=== PATIENT | male | born 1950 | race Caucasian/White ===

== ENCOUNTER 2016-11-30 18:46 | Emergency (ER) | payer MEDICARE, OTHER ==
--- NOTE | 2016-11-30 19:25 | Emergency Department Record ---
History of Present Illness - General Stated Complaint: LIGHTHEADED Time Seen by Provider: 11/30/16 19:20 Source: Patient Mode of Arrival: Ambulatory Limitations: No limitations - History of Present Illness Initial Comments: 66 yo male presents to ED with a CC of dizziness and "flu-like symptoms". Patient reports starting an injectable DM II medication 3 weeks ago, and reports similar symptoms after starting the medication each week, however today' s symptoms are longer in duration (48 hours). Patient denies fevers, chills, cough, or chest pain symptoms. Patient does report mild constipation "from the medication", last BM was yesterday. Complaint: Dizziness Onset/Timin -: Days(s) Description: Lightheadedness History of Same: Yes History of Trauma: No Severity: Moderate Improves With: Nothing Associated Symptoms: Other (body aches) - Urban Coma Scale Eye Response: (4) Open spontaneously Motor Response: (6) Obeys commands Verbal Response: (5) Oriented Urban Total: 15 - Related Data Home Medications Medication Instructions Recorded Confirmed Last Taken Docusate Sodium [Colace] 100 mg PO DAILY 11/30/16 11/30/16 Unknown Exenatide Microspheres [Bydureon 2 mg SQ WEEKLY 11/30/16 11/30/16 Unknown Pen] Glipizide [Glipizide ER] 5 mg PO DAILY 11/30/16 11/30/16 Unknown Metformin HCl [Metformin HCl ER] 2,000 mg PO DAILY 11/30/16 11/30/16 Unknown Sildenafil Citrate [Viagra] 100 mg PO ASDIR PRN 11/30/16 11/30/16 Unknown Allergies Allergy/AdvReac Type Severity Reaction Status Date / Time No Known Drug Allergies Allergy Verified 11/30/16 19:24 Review of Systems Constitutional: Denies: Chills, Fever, Malaise, Night sweats Eyes: Denies: Eye discharge, Eye pain ENT: Denies: Congestion, Ear pain, Epistaxis Respiratory: Denies: Cough, Dyspnea Cardiovascular: Denies: Chest pain, Dyspnea on exertion Endocrine: Denies: Fatigue, Heat or cold intolerance Gastrointestinal: Denies: Nausea, Vomiting Genitourinary: Denies: Incontinence, Retention Musculoskeletal: Reports: Myalgia. Denies: Arthralgia, Back pain, Gout, Joint swelling Skin: Denies: Bruising, Change in color Neurological: Denies: Abnormal gait, Confusion, Headache, Seizure Psychiatric: Denies: Anxiety Hematological/Lymphatic: Denies: Anemia, Blood Clots Physical Exam - General General Appearance: Alert, Oriented x3, Cooperative, No acute distress, Other ( patient is working on a [place] on examination, well appearing) Limitations: No limitations - Head Head exam: Atraumatic, Normocephalic, Normal inspection Head exam detail: negative: Abrasion, Contusion, Paulino's sign, General tenderness, Hematoma, Laceration - Eye Eye exam: Normal appearance. negative: Conjunctival injection, Periorbital swelling, Periorbital tenderness, Scleral icterus - ENT Ear exam: negative: Auricular hematoma, Auricular trauma Nasal Exam: negative: Active bleeding, Discharge, Dried blood, Foreign body Mouth exam: negative: Drooling, Laceration, Muffled voice, Tongue elevation - Neck Neck exam: Normal inspection. negative: Meningismus, Tenderness - Respiratory Respiratory exam: Normal lung sounds bilaterally. negative: Rhonchi, Stridor, Wheezes - Cardiovascular Cardiovascular Exam: Regular rate, Normal rhythm, Normal heart sounds - GI/Abdominal GI/Abdominal exam: Soft. negative: Rebound, Rigid, Tenderness - Rectal Rectal exam: Deferred - exam: Deferred - Extremities Extremities exam: Normal inspection. negative: Calf tenderness, Pedal edema, Tenderness - Back Back exam: Denies: CVA tenderness (R), CVA tenderness (L) - Neurological Neurological exam: Alert, Normal gait, Oriented X3 - Psychiatric Psychiatric exam: Normal affect, Normal mood - Skin Skin exam: Normal color. negative: Abrasion Type of lesion: negative: abrasion Course Vital Signs 11/30/16 19:09 Temperature 98.1 F Pulse Rate [ 79 Pulse Ox Probe] Respiratory 16 Rate Blood Pressure 151/104 [Left Arm] Pulse Ox 95 - Reevaluation(s) Reevaluation #1: 11/30/16 19:39 EKG: NSR 77 Normal axis Normal intervals Q wave III, no acute ST-T wave changes Reevaluation #2: 11/30/16 20:03 Labs reviewed and are grossly unremarkable for an acute process. Reevaluation #3: 11/30/16 20:21 Patient was updated on all results, reports that he is feeling much better and appears stable for discharge at this time. Patient was instructed to follow-up with Dr. Connor for a replacement DM treatment and to discontinue his current weekly injectable medication. Medical Decision Making - Lab Data Result diagrams: 11/30/16 19:30 11/30/16 19:30 Disposition Disposition: Discharge Clinical Impression: Adverse effect of drug Disposition: Home, Self-Care Condition: (2) Stable Instructions: Adverse Drug Reaction (ED) Additional Instructions: Return to ED if your symptoms worsen or if you have any concerns. Discontinue any further dosages of your injectable diabetic medication. Follow-up with Dr. Connor in 3-5 days as directed. Time of Disposition: 20:23
[2016-11-30] MEDS ORDERED: 0.9 % SODIUM CHLORIDE 1000ML 1,000 ML IV SCH (19:30)
[2016-11-30 19:47] LABS: BASO % 0.5 % (0-6); EOS % 2.2 % (0-6); HEMOGLOBIN 15.1 gm/dl (14.0-18.0); LYMPH % 25.1 % (16-45); MEAN CELL VOLUME 88.8 fl (81-97); MEAN CORPUSCULAR HEMOGLOBIN 29.8 pg (27-33); MEAN CORPUSCULAR HGB CONC 33.6 g/dl (32-36); MEAN PLATELET VOLUME 10.2 fl (7.4-10.4); MONO % 9.2 % (0-9); PLATELET COUNT 265 K/uL (130-400); RED BLOOD COUNT 5.07 M/uL (4.40-5.70); RED CELL DISTRIBUTION WIDTH 12.7 % (11.5-14.5); WHITE BLOOD COUNT W/O DIFF 9.6 K/uL (4.2-12.2)
[2016-11-30 19:57] LABS: BLOOD UREA NITROGEN 22 mg/dL (9-20); GLUCOSE,RANDOM 137 mg/dL (70-110); LACTIC ACID 1.5 mmol/L (0.7-2.1)
[2016-11-30 19:58] LABS: ALB/GLOB RATIO 1.5 (1.1-1.8); ALBUMIN 4.4 gm/dL (3.5-5.0); AST/SGOT 22 U/L (17-59); EST GLOMERULAR FILTRATION RATE > 60 ml/min; TOTAL PROTEIN 7.3 gm/dL (6.3-8.2)
[2016-11-30 19:59] LABS: ALKALINE PHOSPHATASE 60 U/L (38-126); ALT/SGPT 38 U/L (21-72); CREATINE PHOSPHOKINASE 33 U/L (55-170)
[2016-11-30 20:01] LABS: INFLUENZA A NEGATIVE (NEGATIVE); INFLUENZA B NEGATIVE (NEGATIVE)
== END 2016-11-30 20:45 | disposition home or self-care (01) ==
LOC: ER 18:46
DX: R42 Dizziness and giddiness (principal); T38.3X5A Adverse effect of insulin and oral hypoglycemic [antidiabetic] drugs, initial encounter; E11.9 Type 2 diabetes mellitus without complications; Z79.4 Long term (current) use of insulin; Z79.84 Long term (current) use of oral hypoglycemic drugs
CPT/HCPCS: 80053; 82550; 83605; 85025; 87400; 93005; 93010; 96360; 99284; J7030

== ENCOUNTER 2019-04-07 07:35 | Emergency (ER) | payer MEDICARE, OTHER ==
[2019-04-07] MEDS ORDERED: ASPIRIN 81 MG CHEWABLE TABLET PO ONE (07:42)
--- NOTE | 2019-04-07 07:48 | Emergency Department Record ---
History of Present Illness - General Chief Complaint: Chest Pain Stated Complaint: CHEST DISCOMFORT/REACTION TO NEW MED Time Seen by Provider: 04/07/19 07:38 Source: Patient Mode of Arrival: Ambulatory Limitations: No limitations - History of Present Illness Initial Comments: 68 yo male presents to with a sharp pain with cough and moving of the right upp er chest to the right shoulder. He woke up around 5am without any symptoms. He coughed around 6am and had a sudden sharp pain. The pain is reproduced with deep breathing, coughing, and moving. No fever. No shortness of breath. No recent cough or UTI. He did use a tractor for several hours last night that did not have power steering and he used that shoulder significantly. No CAD history. No DVT or PE history. MD Complaint: Chest pain -: Hour(s) (2) Onset: Other (Occurred with a cough) Pain Location: Right chest Pain Radiation: RUE (shoulder area) Quality: Sharp Consistency: Intermittent Improves With: Nothing Worsens With: Inspiration, Movement, Palpation Context: Recent illness (foot infection) Anginal Symptoms: Other (No shortness of breath) Treatments Prior to Arrival: None - Related Data Home Medications Medication Instructions Recorded Confirmed Last Taken Amlodipine Besylate/Benazepril 1 each PO DAILY 04/07/19 04/07/19 04/06/19 [Amlodipine-Benazepril 5-20 mg] Insulin Glargine,Hum.rec.anlog 38 unit SQ DAILY 04/07/19 04/07/19 04/07/19 [Basaglar Kwikpen U-100] Metoprolol Succinate [Toprol Xl] 50 mg PO DAILY 04/07/19 04/07/19 04/06/19 Pantoprazole Sodium [Protonix] 40 mg PO DAILY 04/07/19 04/07/19 04/06/19 Allergies Allergy/AdvReac Type Severity Reaction Status Date / Time No Known Drug Allergies Allergy Verified 11/30/16 19:24 Review of Systems Constitutional: Denies: Chills, Fever, Malaise, Weakness Eyes: Denies: Eye discharge ENT: Denies: Congestion, Epistaxis, Throat pain Respiratory: Reports: Cough. Denies: Dyspnea, Hemoptysis, Stridor, Wheezes Cardiovascular: Reports: As per HPI, Chest pain. Denies: Edema, Palpitations, Paroxysmal nocturnal dyspnea, Syncope Endocrine: Denies: Fatigue, Polydipsia, Polyuria Gastrointestinal: Denies: Abdominal pain, Diarrhea, Nausea, Vomiting Genitourinary: Denies: Dysuria, Frequency, Hematuria Musculoskeletal: Reports: As per HPI, Arthralgia, Myalgia. Denies: Back pain, Gout, Joint swelling Skin: Denies: Bruising, Change in color, Rash Neurological: Denies: Headache Psychiatric: Denies: Anxiety Hematological/Lymphatic: Denies: Blood Clots, Easy bleeding, Easy bruising Past Medical History - SOCIAL HISTORY Smoking Status: Never smoker Drug Use: None - RESPIRATORY Hx Respiratory Disorders: No - CARDIOVASCULAR Hx Cardio Disorders: No - NEURO Hx Neuro Disorders: No - GI Hx GI Disorders: No - Hx Genitourinary Disorders: Yes Hx Bladder Problem: Yes (cancer) - ENDOCRINE Hx Endocrine Disorders: Yes Hx Diabetes: Yes - MUSCULOSKELETAL Hx Musculoskeletal Disorders: No - PSYCH Hx Psych Problems: No - HEMATOLOGY/ONCOLOGY Hx Cancer: Yes Physical Exam - General General Appearance: Alert, Oriented x3, Cooperative, No acute distress Limitations: No limitations - Head Head exam: Atraumatic, Normal inspection - Eye Eye exam: Normal appearance, PERRL. negative: Conjunctival injection, Scleral icterus - ENT ENT exam: Normal exam, Mucous membranes moist Ear exam: Normal external inspection Nasal Exam: Normal inspection Mouth exam: Normal external inspection - Neck Neck exam: Normal inspection, Full ROM - Respiratory Respiratory exam: Normal lung sounds bilaterally, Chest wall tenderness (tender to palpation in the right upper chest). negative: Accessory muscle use, Decreased breath sounds, Prolonged expiratory, Rales, Rhonchi, Stridor, Wheezes - Cardiovascular Cardiovascular Exam: Regular rate, Normal rhythm, Normal heart sounds. negative: Diastolic murmur, Systolic murmur Peripheral Pulses: 2+: Radial (R), Radial (L) - GI/Abdominal GI/Abdominal exam: Soft. negative: Tenderness - Rectal Rectal exam: Deferred - exam: Deferred - Extremities Extremities exam: Normal inspection, Full ROM, Tenderness. negative: Calf tenderness, Joint swelling, Normal capillary refill, Pedal edema Image of Full Body: 1 - reproducible tenderness of the right shoulder, tender right upper chest, pain reproduced with movement. Image of Feet: 1 - erythema with central scab, mild swelling, no pus - Back Back exam: Reports: Full ROM. Denies: CVA tenderness (R), CVA tenderness (L), Tenderness - Neurological Neurological exam: Alert, Oriented X3 - Psychiatric Psychiatric exam: Normal affect, Normal mood - Skin Skin exam: Dry, Erythema (middle toe), Intact, Warm Course - Reevaluation(s) Reevaluation #1: EKG #1: 07:38 Rate: 77 Rhythm: sinus Cerro: normal Intervals: OK 212 ST segments: normal normal EKG except OK interval Prior: No changes from 11/30/16 04/07/19 07:48 Not typical for ACS with reproducible component, non exertion related, normal EKG. 04/07/19 08:24 The labs were reviewed The CBC and CMP were without significant changes (Glucose 181) The D-Dimer is elevated at 2.7 04/07/19 08:25 Troponin is normal 04/07/19 09:01 The patient did not take his AM medications (Metoprol XL or Benazapril) and request meds Aspirin was given in the ED 04/07/19 09:03 CXR negative for acute disease 04/07/19 09:04 HEART Score Low risk with very low risk, atypical for ACS presentation. DC if repeat Troponin is normal Repeat examination is still completely reproducible pain. 04/07/19 09:16 The CTA of the chest was negative for PE or dissection/aneurysm or other acute pathology 04/07/19 09:18 We discussed the results of the tests and questions were answered. With discussed DC home if a 2nd troponin is normal The patient is doing well and is comfortable with DC. We discussed at length reasons to immediately return to the ED as well as close follow up. The patient will call the PCP for close follow up of this ED visit to review this visit and the tests performed 04/07/19 11:11 Repeat troponin is normal 04/07/19 11:21 DC examination is unchanged. Pain only with cough, movement or palpation Podiatry referral was made for the toe infection since he is a diabetic Medical Decision Making - Lab Data Result diagrams: 04/07/19 07:45 04/07/19 07:45 Disposition Disposition: Discharge Clinical Impression: Chest wall pain, Atypical chest pain, Cellulitis, toe Disposition: Home, Self-Care Condition: (1) Good Instructions: Chest Wall Pain (ED) Additional Instructions: Call your doctor for the next available follow up appointment Review this ER visit and the tests performed with your family doctor Return to the ER for a recheck if worse, any new concerns or questions Call Dr Bynum of podiatry for follow up of the toe infection Keep it clean and out of hot sweaty boots or shoes that can rub it Referrals: Edgardo Bynum, D.P.MPramod [DOCTOR OF PODIATRY MEDICINE] - [facility] [Provider Group] Forms: Patient Portal Access Time of Disposition: 11:03 Quality - Quality Measures Quality Measures: N/A - Blood Pressure Screening Does Patient Have Any of the Following: Active Dx of HTN Blood Pressure Classification: Hypertensive Reading Systolic Measurement: 159 Diastolic Measurement: 95 Screening for High Blood Pressure: Patient Exclusion, Hx of HTN [G9744] Pre-Hypertensive Follow-up Interventions: Referral to alternative/primary care provider.
[2019-04-07 07:54] LABS: BASO % 1.3 % (0-6); EOS % 3.8 % (0-6); GRAN % 63.8 % (47-80); HEMATOCRIT 40.7 % (42.0-52.0); HEMOGLOBIN 13.1 gm/dl (14.0-18.0); LYMPH % 21.8 % (16-45); MEAN CELL VOLUME 87.3 fl (81-97); MEAN CORPUSCULAR HEMOGLOBIN 28.1 pg (27-33); MEAN CORPUSCULAR HGB CONC 32.2 g/dl (32-36); MEAN PLATELET VOLUME 9.8 fl (7.4-10.4); MONO % 9.3 % (0-9); PLATELET COUNT 299 K/uL (130-400); RED BLOOD COUNT 4.66 M/uL (4.40-5.70); RED CELL DISTRIBUTION WIDTH 14.2 % (11.5-14.5); WHITE BLOOD COUNT W/O DIFF 8.2 K/uL (4.2-12.2)
[2019-04-07 08:08] LABS: BILIRUBIN,TOTAL < 0.20 mg/dL (0.2-1.0); BLOOD UREA NITROGEN 24 mg/dL (8-23); CREATININE 0.9 mg/dL (0.7-1.2); EST GLOMERULAR FILTRATION RATE > 60 mL/min
[2019-04-07 08:09] LABS: TOTAL PROTEIN 7.1 g/dL (6.6-8.7)
[2019-04-07 08:11] LABS: GLUCOSE,RANDOM 181 mg/dL (74-109)
[2019-04-07 08:13] LABS: ALB/GLOB RATIO 1.6 (1.1-1.8); ALBUMIN 4.4 g/dL (4.0-5.0); ALT/SGPT 15 U/L (<41); AST/SGOT 13 U/L (10.0-50.0)
[2019-04-07 08:14] LABS: ALKALINE PHOSPHATASE 146 U/L (40-129)
[2019-04-07] MEDS ORDERED: METOPROLOL SUCC 50 MG TABLET PO ONE (08:59)
[2019-04-07] MEDS ORDERED: BENAZEPRIL 20 MG TABLET PO STA (09:01)
[2019-04-07] MEDS ORDERED: AMLODIPINE BESYLATE 5MG TAB PO SCH (10:00)
--- NOTE | 2019-04-08 08:46 | RADIOLOGY REPORT ---
EXAM: CHEST 2 VIEWS HISTORY: COUGH. RIGHT-SIDED CHEST PAIN. PRIOR FORAMEN OVALE REPAIR. TECHNIQUE: Upright PA and lateral views of the chest. COMPARISON: None. FINDINGS: The heart is not enlarged and the pulmonary vasculature is nondilated. Foramen ovale occlusive device is in place. The thoracic aorta is mildly tortuous. No confluent airspace opacity is seen nor is there costophrenic angle blunting or pneumothorax. Mild degenerative endplate changes are scattered throughout the visualized spine. Postsurgical changes are noted within the proximal right humerus. There is a possible chronic right rotator cuff tear. IMPRESSION: NO RADIOGRAPHIC EVIDENCE OF ACUTE CARDIOPULMONARY DISEASE. JOB NUMBER: [id number] [facility]
--- NOTE | 2019-04-08 09:29 | CT ANGIOGRAM REPORT ---
DATE: 04/07/2019 at 0840. EXAM: CT ANGIOGRAM OF THE CHEST HISTORY: RIGHT-SIDED CHEST PAIN. COUGH. TECHNIQUE: Routine CT angiogram examination of the chest is performed utilizing a pulmonary embolus protocol with 71 mL of Omnipaque 350 utilized. Maximum- intensity projection reformatted images are generated in the coronal and sagittal planes and are reviewed. COMPARISON: Same-day two-view chest radiographic examination. FINDINGS: Opacification of the systemic arteries is satisfactory for interpretation, though evaluation of the segmental arteries in the anterior basal segment of the left lower lobe is mildly limited by motion artifact. No luminal filling defect in the outflow tract, main arteries, lobar arteries, or proximal segmental arteries that are unaffected by respiratory motion. The heart is at the upper limits of normal in size. There is no evidence of acute right-sided heart strain. Atrioseptal occlusive device is in place. The thoracic aorta is mildly tortuous and atherosclerotic without aneurysmal dilatation. No evidence of dissection. No mediastinal nor hilar mass/lymphadenopathy. There are several non-enlarged lymph nodes scattered within the mediastinum. The central airways are clear. Mild dependent atelectasis in each lung base. Minor linear scarring versus atelectasis is also demonstrated within the right middle lobe and lingula. No lung consolidation. Minimal bi-apical lung scarring. There is a calcified granuloma within the right middle lobe measuring 4.0 mm. No suspicious noncalcified nodule. There is minimal patchy opacity in the dependent right upper lobe, also likely relating to atelectasis rather than infiltrate. No pleural or pericardial effusion. The adrenal glands are not enlarged. Degenerative endplate changes are scattered throughout the visualized spine. There is an old healed fracture deformity of the distal left third rib. IMPRESSION: 1. NO CT ANGIOGRAPHY EVIDENCE OF ACUTE PULMONARY EMBOLIC DISEASE, THOUGH EVALUATION OF THE SEGMENTAL ARTERIES OF THE ANTERIOR ASPECT OF THE LEFT LOWER LOBE IS LIMITED BY MOTION ARTIFACT. 2. ATRIOSEPTAL OCCLUSIVE DEVICE IN PLACE. 3. MINOR PATCHY OPACITIES WITHIN THE DEPENDENT LUNGS AND RIGHT UPPER LOBE CONSISTENT WITH ATELECTASIS. INFILTRATE UNLIKELY. 4. HEALED GRANULOMATOUS DISEASE WITHIN THE RIGHT MIDDLE LOBE. 5. LINEAR SCARRING VERSUS ATELECTASIS WITHIN THE ANTERIOR LUNG BASES AND LUNG APICES. Job Number: [id number] [facility]
== END 2019-04-07 11:22 | disposition home or self-care (01) ==
LOC: ER 07:35
DX: R07.89 Other chest pain (principal); L03.032 Cellulitis of left toe; R05 Cough; M25.511 Pain in right shoulder; R79.89 Other specified abnormal findings of blood chemistry; E11.9 Type 2 diabetes mellitus without complications; I10 Essential (primary) hypertension; Z79.84 Long term (current) use of oral hypoglycemic drugs; Z79.4 Long term (current) use of insulin
CPT/HCPCS: 99284 ×2; 85025; 80053; 84484; 85379; 71046; 71275; 93005; 93010; Q9967

== ENCOUNTER 2019-04-12 23:30 | Emergency (ER) | payer MEDICARE, OTHER ==
[2019-04-12] MEDS ORDERED: DIPHENHYDRAMINE HCL 50 MG/ML VIAL IM ONE (23:55)
--- NOTE | 2019-04-13 00:01 | Emergency Department Record ---
History of Present Illness - General Chief complaint: Rash Stated complaint: POISON ROBERTO CARLOS Time Seen by Provider: 04/12/19 23:49 Source: Patient Mode of Arrival: Ambulatory Limitations: No limitations - History of Present Illness Initial comments: The patient is here due to having a bad rash to the arms L>R for the last 3 days. The rash is very itchy and he was exposed to poison roberto carlos just prior to that. Also the patient has had poison roberto carlos similar to this in the past. The patient is a diabetic also and the last time with the rash he received oral steroids and it caused his blood sugar to go haywire. He denies any CP, SOB, MADYSON, or fevers. Additionally the patient was here in the ER 6 days ago for CP and was started on Cefuroxime for a toe infection. MD complaint: Rash Onset/Timin -: Days(s) Location: Face, LUE, RUE Consistency: Constant Improves with: Topical medication Associated symptoms: Denies other symptoms Treatments Prior to Arrival: OTC topical medication - Related Data Home Medications Medication Instructions Recorded Confirmed Last Taken Cefuroxime Axetil [Cefuroxime] 1 tab PO BID 04/12/19 04/12/19 04/12/19 Previous Rx's Medication Instructions Recorded Hydrocortisone [Cortisone] 60 gm TP BID #1 cream..g. 04/13/19 Allergies Allergy/AdvReac Type Severity Reaction Status Date / Time No Known Drug Allergies Allergy Verified 11/30/16 19:24 Travel Screening - Travel/Exposure Within Last 30 Days Have you traveled within the last 30 days?: No - Travel/Exposure Within Last Year Have you traveled outside the [place] in the last year?: No - Additonal Travel Details Have you been exposed to anyone with a communicable illness?: No - Travel Symptoms Symptom Screening: None Review of Systems Constitutional: Denies: Chills, Fever Eyes: Denies: Eye discharge ENT: Denies: Congestion Respiratory: Denies: Cough, Dyspnea Past Medical History - SOCIAL HISTORY Smoking Status: Never smoker Alcohol Use: None Drug Use: None - RESPIRATORY Hx Respiratory Disorders: No - CARDIOVASCULAR Hx Cardio Disorders: No - NEURO Hx Neuro Disorders: No Hx CVA: Yes (2006) - GI Hx GI Disorders: No Hx Reflux: Yes - Hx Genitourinary Disorders: Yes Hx Bladder Problem: Yes (cancer) - ENDOCRINE Hx Endocrine Disorders: Yes Hx Diabetes: Yes (type 2) - MUSCULOSKELETAL Hx Musculoskeletal Disorders: No - PSYCH Hx Psych Problems: No - HEMATOLOGY/ONCOLOGY Hx Hematology/Oncology Disorders: Yes Hx Cancer: Yes Family Medical History Any Significant Family History?: No Physical Exam - General General Appearance: Alert, Oriented x3, Cooperative, No acute distress - Head Head exam: Atraumatic, Normocephalic, Normal inspection - Eye Eye exam: Normal appearance, PERRL - ENT ENT exam: negative: Normal exam (There is mild erythema to the L lower facial area that could be mild poison roberto carlos.) - Neck Neck exam: Normal inspection, Full ROM. negative: Tenderness - Respiratory Respiratory exam: Normal lung sounds bilaterally. negative: Respiratory distress - Cardiovascular Cardiovascular Exam: Regular rate, Normal rhythm, Normal heart sounds - Extremities Extremities exam: Full ROM, Normal capillary refill, Other (The rash is linear in spots with mild vesicles in the weeping areas. There is no warmth or tenderness.). negative: Normal inspection (There is a very pruritic erythematous rash to the arms L>R with mild edema and weeping only to the L posterior arm. ), Joint swelling, Tenderness - Neurological Neurological exam: Alert. negative: Motor sensory deficit Course Vital Signs 04/12/19 23:34 Temperature 98.1 F Pulse Rate [ 87 Pulse Ox Probe] Respiratory 20 Rate Blood Pressure 163/94 [Left Arm] Pulse Ox 95 - Reevaluation(s) Reevaluation #1: The patient is doing well at this time. I did discuss the need for an oral Antihistamine for the itching and will prescribe a steroid cream. Due to his diabetes we will not be able to prescribe oral steroids. 04/13/19 00:12 Disposition Disposition: Discharge Clinical Impression: Poison roberto carlos dermatitis Disposition: Home, Self-Care Condition: (2) Stable Instructions: Acute Rash (ED) Additional Instructions: Please take an oral antihistamine daily for the itching and also use the Hydrocortisone cream as directed. Please also obtain Zanfel cream to use on the arms. Please see your family doctor on Wednesday for recheck and return to the ER for any worsening symptoms. Prescriptions: Hydrocortisone [Cortisone] 60 gm TP BID #1 cream..g. Forms: Patient Portal Access Time of Disposition: 00:17 Quality - Quality Measures Quality Measures: N/A - Blood Pressure Screening View Details: Yes Does Patient Have Any of the Following: Active Dx of HTN Blood Pressure Classification: Hypertensive Reading Systolic Measurement: 163 Diastolic Measurement: 94 Screening for High Blood Pressure: Patient Exclusion, Hx of HTN [G9744]
== END 2019-04-13 00:29 | disposition home or self-care (01) ==
LOC: ER 23:30
DX: L23.7 Allergic contact dermatitis due to plants, except food (principal); E11.9 Type 2 diabetes mellitus without complications; I10 Essential (primary) hypertension
CPT/HCPCS: 96372; 99282; 99283; J1200